=== PATIENT | female | born 1965 | race Caucasian/White ===

== ENCOUNTER 2017-06-11 17:37 | Emergency (ER) | payer OTHER, MEDICARE ==
[~2017-06-11] VITALS: Ht 165.1 cm; Wt 104.3 kg
[~2017-06-11 17:37] MED LIST: DIVA250T34 PO; GLU500 PO; LEVE500T13 PO; LEVO125T8 PO; LISI-209 PO; LOPE2CAP PO; LORA10TA64 PO; MI ACID PO; PHEDM120 PO; SER25 PO; SOLI10TA5 PO; TRAZ-126 PO
[2017-06-11 17:47] VITALS: BP_SYST 133
[2017-06-11] MEDS ORDERED: ACETAMINOPHEN 500 MG TABLET PO ONE (18:45)
[2017-06-11 20:00] VITALS: BP_SYST 133
== END 2017-06-11 20:00 | disposition home or self-care (01) ==
LOC: SED 17:37
DX: S82.844A Nondisplaced bimalleolar fracture of right lower leg, initial encounter for closed fracture (principal); E11.9 Type 2 diabetes mellitus without complications; K21.9 Gastro-esophageal reflux disease without esophagitis; I10 Essential (primary) hypertension; E03.9 Hypothyroidism, unspecified; G40.909 Epilepsy, unspecified, not intractable, without status epilepticus; Z86.19 Personal history of other infectious and parasitic diseases; Z79.899 Other long term (current) drug therapy; W19.XXXA Unspecified fall, initial encounter; Y93.89 Activity, other specified; Y92.210 Daycare center as the place of occurrence of the external cause; Y99.8 Other external cause status
CPT/HCPCS: 99284